=== PATIENT | female | born 1960 | race Caucasian/White ===

== ENCOUNTER 2021-04-05 10:03 | Emergency (ER) | payer BC, SELFPAY ==
[2021-04-05] VITALS (64 sets, daily range): BP systolic 122–139; BP diastolic 65–87; PULSE 54–64; RESP 10–27; TEMP 36.6; O2SAT 94–99
--- NOTE | 2021-04-05 10:00 | RT.EKG_ITS ---
APPROVED REPORT Exam: Resting ECG Reason for Exam: chest pain Patient Location: E HR:66 bpm ECG Measurements Heart Rate 66 AXIS SC 160 P 53 QRSd 81 QRS 3 QT 396 T 38 QTc 416 Conclusion Sinus rhythm...normal P axis, V-rate 60- 99 Probable left atrial enlargement...P >50mS, <-0.10mV V1. No STEMI. I have reviewed and interpreted ECG and agree with software generated interpretation.
--- NOTE | 2021-04-05 10:10 | ED.GENADUL_ITS ---
Discharge Plan Disposition Patient Disposition: HOME Condition: Good Discharge Details Clinical Impression: Pre-syncope, Strain of deltoid muscle Primary Care Provider: Unknown,Unknown ED Provider: Fadia Gomez Home Meds and New Rx's Prescriptions: New lidocaine [Lidoderm] 5 % adhesive patch,medicated 1 patch topical DAILY Qty: 15 RF: 0 Continued fluticasone propionate 50 mcg/actuation [place],Suspension 1 spray INTRANASAL BID RF: 0 levetiracetam [Keppra] 1,000 mg Tablet 1,500 mg PO BID RF: 0 Vimpat 100 mg Tablet 100 mg PO BID RF: 0 cetirizine 10 mg Tablet 10 mg PO DAILY RF: 0 Discharge Instructions Instructions: Muscle Strain (ED), Near Syncope (ED) Additional Instructions: Please follow-up with your primary care physician and your neurologist You may use a sling but continue to range her shoulder so it does not become stiff from under you You may take ibuprofen 600 mg every 8 hours with food for pain control You can take Tylenol in addition every 4-6 hours, 650 mg to 1 g, do not exceed 3 g of Tylenol in 1 day Light stretching of your shoulder Please return with chest pain, shortness of breath, weakness or dizziness, or with any new, worsening, or persistent complaints You may apply Lidoderm patch to the affected area, 12 hours on, 12 hours off Discharge Data Discharge Date/Time-TO BE ENTERED AT DEPARTURE: 04/05/21 12:07 Medical Decision Making I did consider giving patient an IV dose of Keppra in the emergency room, however it is difficult to say if this is oral for patient or presyncope s econdary to pain Patient will take her oral medication as prescribed, she did take her dose just prior to coming into the emergency room I suspect the cause of her symptoms is related to the right deltoid pain. This is probably from dry driving, however I did initiate cardiac work-up given patient's age Patient denies any chest pain or shortness of breath, specifically denies any pleuritic pain, she has no calf pain or swelling She is slightly at risk because because of recent 4-hour drive although not on exogenous hormones and does not smoke tobacco without history of coagulopathy Pain is completely resolved after trigger point injection A sling was supplied with frozen shoulder precautions discussed She is encouraged to follow-up with a neurologist and I did leave a message on her neurologist voicemail to let them know that she was in the emergency room with possible aura, however he did not receive a return phone call and I think it is fine for patient follow-up outpatient She is alert, oriented, of decisional capacity, she is discharged home in the care of her daughter Ambulatory with steady gait Return precautions discussed and patient expressed understanding Medical Records Medical records reviewed: Yes I reviewed the patient's medical records. Lab Data Lab results reviewed: Yes I reviewed the patient's lab results. HPI General Mode of arrival: ambulatory . Date/Time Provider Initiated Documentation: 04/05/21 10:04 . Limitations to Documentation: no limitations . Information obtained by: patient . HPI Narrative: This 60-year-old presents with reports of right arm pain from driving up from [place] on Friday. She was driving up here attending . She denies any chest pain or shortness of breath. She also has a reported history of seizures and was feeling presyncopal, she was wondering if this was contributing to her symptoms. Denies any seizure. Took her antiepileptics today. Improved at this time. Denies any current nausea or vomiting. Denies any fever or chills. Denies any urinary symptoms. Denies any cough. States the pain is largely precipitated by her lifting her right arm. Denies prior history of similar symptoms in the past. Has not taken any medications aside from her prescribed medications. Denies any new medication. Denies any pleuritic chest pain, calf pain or swelling, or history of coagulopathy. Denies recent flights, surgeries, long drives. Related Data Home Medications Medication Instructions Recorded Confirmed Vimpat 100 mg PO BID 04/05/21 04/05/21 cetirizine 10 mg PO DAILY 04/05/21 04/05/21 fluticasone propionate 1 spray INTRANASAL BID 04/05/21 04/05/21 levetiracetam [Keppra] 1,500 mg PO BID 04/05/21 04/05/21 lidocaine [Lidoderm] 1 patch TOPICAL DAILY #15 ea 04/05/21 Previous Rx's Medication Instructions Recorded lidocaine [Lidoderm] 1 patch TOPICAL DAILY #15 ea 04/05/21 Allergies Allergy/AdvReac Type Severity Reaction Status Date / Time No Known Allergies Allergy Unverified 04/05/21 10:14 Review of Systems All systems reviewed & are unremarkable except as noted in HPI and below PFSH Social History Smoking/Tobacco Use Status: Former Tobacco Use Smoking risk assessment performed?: Yes Alcohol Intake: former Drug use: Never Do you feel safe at home: Yes Do you feel safe in your relationship?: Yes Exam Extrem Other: palpable+ Procedures Other Description: Trigger point injection to right deltoid muscle, wound cleansed and 3 cc of bupivacaine with epinephrine injected into the deltoid muscle, no complications, scant bleeding, neurovascularly intact pre and post procedure
[2021-04-05 10:46] LABS: Abs Immature Grans 0.01 10^3/uL (0.0-0.06); Absolute Basophil Count 0.02 10^3/uL (0.0-0.2); Absolute Eosinophil Count 0.37 10^3/uL (0.0-0.7); Absolute Lymphocyte Count 1.62 10^3/uL (1.2-3.4); Absolute Monocyte Count 0.57 10^3/uL (0.1-0.8); Absolute Neutrophil Count 2.85 10^3/uL (1.2-6.7); Basophils % 0.4; Eosinophils % 6.8; HGB 14.1 g/dL (11.2-15.7); Immature Grans % 0.2; Lymphocytes % 29.8; MCH 31.5 pg (27.0-33.0); MCHC 34.4 % (32.0-36.0); MCV 91.5 fL (80-95); MPV 9.2 fL (8.0-11.0); Monocytes % 10.5; Neutrophils % 52.3; Nucleated RBC 0 %; Platelet Count 199 10^3/uL (130-400); RBC 4.48 10^6/uL (3.93-5.22); RDW 11.3 % (11.7-14.6); RDW-SD 38.4 fL; WBC 5.44 10^3/uL (4.4-10.8)
[2021-04-05 11:12] LABS: ALT 18 U/L (14-59); AST 23 U/L (15-37); Albumin 3.7 g/dL (3.4-5.0); Alkaline Phosphatase 73 U/L (46-116); Anion Gap 7.9 mmol/L (3-11); BUN 15 mg/dL (7-18); Bilirubin, Total 0.5 mg/dL (0.2-1.0); CO2 27.1 mmol/L (21.0-32.0); CREATININE 0.7 mg/dL (0.55-1.02); Calcium 9.3 mg/dL (8.5-10.1); Chloride 108 mmol/L (98-107); Glucose 78 mg/dL (74-106); Magnesium 2.3 mg/dL (1.8-2.4); Potassium 3.8 mmol/L (3.5-5.1); Sodium 143 mmol/L (136-145)
[2021-04-05 11:13] LABS: Troponin I < 0.05 ng/mL (<0.06)
[2021-04-05 12:03] LABS: Bilirubin Negative (Negative); Blood Negative (Negative); Clarity Clear (Clear); Glucose Negative (Negative); Ketones Negative (Negative); Leukocyte Esterase Negative (Negative); Nitrite Negative (Negative); Specific Gravity 1.015 (1.005-1.025); Urobilinogen 0.2 EU/dL (Up TO 0.2)
== END 2021-04-05 12:07 | disposition home or self-care (01) ==
PROVIDERS: Emergency Provider Physician Assistant
DX: R55 Syncope and collapse (principal); S46.811A Strain of other muscles, fascia and tendons at shoulder and upper arm level, right arm, initial encounter; X58.XXXA Exposure to other specified factors, initial encounter
CPT/HCPCS: 20552; 36415; 80053; 93005; 99284; 81003; 83735; 84484; 85025; 93010; 99283